=== PATIENT | male | born 1995 | race African-American/Black ===

== ENCOUNTER 2018-06-14 20:58 | Emergency (ER) | payer SELFPAY ==
[~2018-06-14] VITALS: Ht 188 cm; Wt 93.2 kg
[2018-06-14 21:11] VITALS: BP 125/76; TEMP 98.6
[2018-06-14 23:00] VITALS: PULSE 89
== END 2018-06-14 23:00 | disposition home or self-care (01) ==
LOC: COL.ER 20:58
DX: S62.91XA Unspecified fracture of right hand, initial encounter for closed fracture (principal); S63.502A Unspecified sprain of left wrist, initial encounter; F17.210 Nicotine dependence, cigarettes, uncomplicated; Z88.0 Allergy status to penicillin; W22.11XA Striking against or struck by driver side automobile airbag, initial encounter; Y92.413 State road as the place of occurrence of the external cause

== ENCOUNTER 2018-06-26 16:34 | Emergency (ER) | payer SELFPAY ==
[~2018-06-26] VITALS: Ht 185.4 cm; Wt 94.1 kg
[2018-06-26 16:42] VITALS: BP 143/98; PULSE 97; TEMP 97.5
== END 2018-06-26 18:40 | disposition home or self-care (01) ==
LOC: COL.ER 16:34
DX: S01.81XA Laceration without foreign body of other part of head, initial encounter (principal); W25.XXXA Contact with sharp glass, initial encounter; Y92.59 Other trade areas as the place of occurrence of the external cause

== ENCOUNTER 2020-12-02 11:02 | Emergency (ER) | payer OTHER ==
[~2020-12-02] VITALS: Ht 188 cm; Wt 102.3 kg
[2020-12-02 11:14] VITALS: PULSE 90; TEMP 98.3
[2020-12-02 11:56] VITALS: BP 134/89
== END 2020-12-02 11:56 | disposition home or self-care (01) ==
LOC: COL.ER 11:02
DX: S01.81XA Laceration without foreign body of other part of head, initial encounter (principal); F17.200 Nicotine dependence, unspecified, uncomplicated; W25.XXXA Contact with sharp glass, initial encounter